=== PATIENT | female | born 1990 | race African-American/Black ===

== ENCOUNTER 2017-09-27 08:28 | Outpatient (CLI) | payer MEDICAID ==
[2017-09-27 09:13] LABS: AMNISURE (ROM) NEGATIVE (NEGATIVE)
[2017-09-27 09:20] LABS: APPEARANCE,URINE CLOUDY; BILIRUBIN,URINE NEGATIVE (NEGATIVE); COLOR,URINE AMBER; GLUCOSE, URINE NEGATIVE (NEGATIVE); KETONES,URINE NEGATIVE (NEGATIVE); LEUKOCYTE ESTERASE,URINE NEGATIVE (NEGATIVE); NITRITE,URINE NEGATIVE (NEGATIVE); PROTEIN,URINE NEGATIVE (NEGATIVE); URINE SPECIFIC GRAVITY 1.016
[2017-09-27 09:38] LABS: URINE AMPHETAMINES SCREEN NEGATIVE; URINE BARBITURATES SCREEN NEGATIVE; URINE BENZODIAZEPINES SCREEN NEGATIVE; URINE COCAINE SCREEN NEGATIVE; URINE MARIJUANA (THC) SCREEN NEGATIVE; URINE METHADONE SCREEN NEGATIVE; URINE PHENCYCLIDINE SCREEN NEGATIVE
== END 2017-09-27 09:51 | disposition home or self-care (01) ==
LOC: LC 08:28
PROVIDERS: ATTEND Student in an Organized Health Care Education/Training Program
PROC: 4A1HXCZ Monitoring of Products of Conception, Cardiac Rate, External Approach (ICD-10-PCS; principal; 2017-09-27)
DX: Z34.93 Encounter for supervision of normal pregnancy, unspecified, third trimester (principal)
CPT/HCPCS: 59025; 80307; 81005; 84112

== ENCOUNTER 2017-09-28 21:17 | Inpatient (IN) | payer MEDICAID ==
[2017-09-28 22:24] LABS: APPEARANCE,URINE CLEAR; BILIRUBIN,URINE NEGATIVE (NEGATIVE); COLOR,URINE YELLOW; GLUCOSE, URINE NEGATIVE (NEGATIVE); KETONES,URINE NEGATIVE (NEGATIVE); LEUKOCYTE ESTERASE,URINE NEGATIVE (NEGATIVE); NITRITE,URINE NEGATIVE (NEGATIVE); PROTEIN,URINE NEGATIVE (NEGATIVE); URINE SPECIFIC GRAVITY 1.014; UROBILINOGEN,URINE NEGATIVE mg/dL (<2.0)
[2017-09-28 22:44] LABS: URINE AMPHETAMINES SCREEN NEGATIVE; URINE BARBITURATES SCREEN NEGATIVE; URINE BENZODIAZEPINES SCREEN NEGATIVE; URINE COCAINE SCREEN NEGATIVE; URINE MARIJUANA (THC) SCREEN NEGATIVE; URINE METHADONE SCREEN NEGATIVE; URINE PHENCYCLIDINE SCREEN NEGATIVE
[2017-09-28] MEDS: RINGERS SOLUTION,LACTATED 1,000 ML IV PRN (23:23)
[2017-09-28 23:25] LABS: ABSOLUTE LYMPHOCYTES (AUTO) 2.9 10^3/uL (0.5-4.7); ABSOLUTE MONOCYTES (AUTO) 1.2 10^3/uL (0.1-1.4); ABSOLUTE NEUT (AUTO) 9.9 10^3/uL (1.7-8.2); BASOPHILS % (AUTO) 0.2 % (0-2); EOSINOPHILS % (AUTO) 0.3 % (0-6); HEMATOCRIT 33.4 % (36.0-47.0); HEMOGLOBIN 11.8 g/dL (12.0-15.5); LYMPHOCYTES % (AUTO) 20.6 % (13-45); MEAN CORPUSCULAR HEMOGLOBIN 31.3 pg (27.0-33.4); MEAN CORPUSCULAR HGB CONC 35.4 g/dL (32.0-36.0); MEAN CORPUSCULAR VOLUME 88 fl (80-97); MONOCYTES % (AUTO) 8.3 % (3-13); PLATELET COUNT 213 10^3/uL (150-450); RED BLOOD COUNT 3.79 10^6/uL (3.72-5.28); RED CELL DISTRIBUTION WIDTH 13.5 % (11.5-14.0); SEGMENTED NEUTROPHILS % (AUTO) 70.6 % (42-78); TOTAL CELLS COUNTED % (AUTO) 100 %
[2017-09-29] MEDS ORDERED: OXYTOCIN/NORMAL SALINE 20 UNIT/1,000 ML RTUINJ IV PRN ×2 (01:56→22:53)
[2017-09-29] MEDS ORDERED: OXYTOCIN/NORMAL SALINE 20 UNIT/1,000 ML RTUINJ ONE (01:59)
--- NOTE | 2017-09-29 04:27 | Admission Physical ---
Datetime Report Generated by CPN: 09/29/2017 04:26 CURRENT ADMISSION Chief Complaint: Suspected Ruptured Membranes Chief Complaint Other: Spoke with pt via tile designer Indication for Induction: Not Applicable Admit Impression : Term, Intrauterine ; No Active Labor; Ruptured Membranes Admit Plan: Admit to Unit; Initiate Labor Protocol ALLERGIES Medication Allergies: No Medication Allergies: No Known Allergies (09/28/2017) Latex: No Latex Allergies Food Allergies: N/A Environmental Allergies: N/A OBSTETRICAL HISTORY EDC: 10/04/2017 00:00 : 2 Para: 0 Term: 0 : 0 SAB: 0 IAB: 0 Ectopic: 0 Livin Cesareans: 0 VBACs: 0 Multiple Births: 0 Gestational Diabetes: No Rh Sensitization: No Incompetent Cervix: No BARTOLOME: No Infertility: No ART Treatment: No Uterine Anomaly: No IUGR: No Hx Previous C/S: No Macrosomia: No Hx Loss/Stillborn: No PIH: No Hx : No Placenta Previa/Abruption: No Depression/PP Depression: No PTL/PROM: No Post Hemorrhage: No Current Procedures: Ultrasound; NST Obstetrical History Comments: G1: G2: current SEE RECORDS Alcohol: No Marijuana : No Cocaine: No Other Illicit Drugs: No Cigarettes: Never Smoker. 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 Patient with complete deafness: dx age 6 months INFECTIOUS HISTORY Gonorrhea: No Genital Herpes: No Chlamydia: No Tuberculosis: No Syphilis: No Hepatitis: No HIV/AIDS Exposure: No Rash or Viral Illness: No HPV: No PHYSICAL EXAM General: Normal HEENT: Normal Neurologic: Normal Heart: Normal Lungs: Normal Abdomen: Normal Genitourinary Exam: Normal Extremities: Normal DTRs: Deferred Pelvic Type: Adequate Vital Signs: Reviewed; Within Normal Limits VAGINAL EXAM Dilatation: 1 Effacement: 0 Station: -3 Contraction Comments: None MEMBRANES Membranes: Ruptured FETUS A EGA: 39.2 Monitoring: External US FHR- Baseline: 135 Variability: Moderate 6-25bpm Accelerations: 15X15 Decelerations: None FHR Category: Category I Presentation: Vertex PLANS FOR LABOR AND DELIVERY Labor and Delivery: None Pain Management: Natural Feeding Preference: Breast Benefit of Breast Feed Discussed: Yes Circumcision: N/A INFORMED CONSENT Signature: with User ID: [email or web address]
[2017-09-29] MEDS ORDERED: GENTAMICIN SULFATE INJ 80 MG/2 ML VIAL IM SCH (06:00)
[2017-09-29] MEDS ORDERED: FENTANYL CITRATE INJ/PF 100 MCG/2 ML AMPUL ONE (08:46)
[2017-09-29] MEDS ORDERED: LIDOCAINE 1.5%/EPINEPHRINE INJ-PF 30 ML SDV ONE (08:47)
[2017-09-29] MEDS ORDERED: PHENYLEPHRINE HCL INJ/PF 10 MG/1 ML SDV ONE (08:47)
[2017-09-29] MEDS ORDERED: EPHEDRINE SULFATE INJ 50 MG/1 ML AMPULE ONE (08:47)
[2017-09-29] MEDS ORDERED: BUPIVACAINE HCL 0.25 % INJ/PF (2.5 MG/1 ML) 30 ML VIAL ONE (08:47)
[2017-09-29] MEDS ORDERED: FENTANYL/BUPIVACAINE/NS/PF 200 MCG/100 ML RTUINJ EPI ONE ×2 (08:51→20:35)
[2017-09-29] MEDS ORDERED: LIDOCAINE 1% INJ-PF (10 MG/ML) 30 ML SDV ONE (09:04)
[2017-09-29] MEDS ORDERED: LIDOCAINE 2% INJ-PF (20 MG/ML) 10 ML AMPUL ONE (09:04)
--- NOTE | 2017-09-29 11:22 | L&D Progress Notes ---
PROGRESS NOTES Datetime Report Generated by CPN: 09/29/2017 11:22 PROGRESS NOTE Impression: Normal Progression of Labor; Reassuring Heart Rate Plan: Continue Present Management; Induction; Cervical Ripening Informed Consent Obtained: Vaginal Delivery; Risks, Benefits and Alternatives Discussed Vital Signs : Reviewed; Within Normal Limits Comment: admitted for PROM and cvx only 2cm now. JANETTE used for interpretation and reviewed intermitted late decels and recommendation for epidural. Reviewed Cooks catheter and patient desires to proceed. Anticiapte . Reviewed C/S for maternal/ distress. VAGINAL EXAM Dilatation: 2 Dilatation: 1 Effacement: 90 Effacement: 0 Station: -1 Station: -3 Contractions: None MEMBRANES Membranes: Ruptured FETUS A FHR - Baseline: 120 Monitoring: External US Variability: Moderate 6-25bpm Accelerations: 15X15 Decelerations: None FHR Category: Category I Presentation: Vertex SIGNATURE SIGNATURE: [id number];[id number] SIGNATURE: [id number] Signature: with User ID: [email or web address]
[2017-09-29] MEDS ORDERED: ONDANSETRON HCL INJ/PF 4 MG/2 ML SDV IV ONE (16:00)
[2017-09-29] MEDS ORDERED: ONDANSETRON HCL INJ/PF 4 MG/2 ML SDV ONE (16:02)
[2017-09-29] MEDS ORDERED: DIPHENHYDRAMINE HCL 50 MG/ML VIAL IV ONE (18:54)
[2017-09-29] MEDS ORDERED: AMPICILLIN SODIUM 2 GM in NORMAL SALINE 100 ML IV ONE ×2 (18:55→20:00)
[2017-09-29] MEDS ORDERED: GENTAMICIN SULFATE INJ 80 MG/2 ML VIAL IV ONE (18:56)
[2017-09-29] MEDS ORDERED: GENTAMICIN SULFATE INJ 80 MG/2 ML VIAL INJ PRN (19:10)
[2017-09-29] MEDS ORDERED: AMPICILLIN SOD INJ 1 GM VIAL IV PRN (19:11)
[2017-09-29] MEDS ORDERED: AMPICILLIN SOD INJ 2 GM VIAL IV ONE (19:12)
[2017-09-29] MEDS ORDERED: AMPICILLIN SOD INJ 2 GM VIAL IV PRN (19:12)
[2017-09-29] MEDS ORDERED: GENTAMICIN SULFATE 170 MG in DEXTROSE 5%-WATER 100 ML IV ONE ×3 (19:15→20:06)
[2017-09-29] MEDS ORDERED: GENTAMICIN SULFATE INJ 80 MG/2 ML VIAL ONE (20:18)
[2017-09-29] MEDS ORDERED: AMPICILLIN SOD INJ 2 GM VIAL ONE (20:19)
[2017-09-29] MEDS ORDERED: DIPHENHYDRAMINE HCL 50 MG/ML VIAL ONE (20:52)
[2017-09-29] MEDS: RINGERS SOLUTION,LACTATED 1,000 ML IV PRN (21:00)
[2017-09-29] MEDS ORDERED: MISOPROSTOL 0.2 MG TABLET ONE (22:39)
[2017-09-29] MEDS ORDERED: DIBUCAINE 1% OINTMENT 28 GM TP PRN (22:53)
[2017-09-29] MEDS ORDERED: MISOPROSTOL 0.2 MG TABLET PR PRN (22:53)
[2017-09-29] MEDS ORDERED: PSEUDOEPHEDRINE HCL 30 MG TABLET PO PRN (22:53)
[2017-09-29] MEDS ORDERED: ACETAMINOPHEN 325 MG TABLET PO PRN (22:53)
[2017-09-29] MEDS ORDERED: GLYCERIN/WITCH HAZEL LEAF 1 EACH MED..PAD TP PRN (22:53)
[2017-09-29] MEDS ORDERED: DIPHENHYDRAMINE HCL 25 MG CAPSULE PO PRN (22:53)
[2017-09-29] MEDS ORDERED: MAGNESIUM HYDROXIDE SUSP 30 ML UDCUP PO PRN (22:53)
[2017-09-29] MEDS ORDERED: MEASLES,MUMPS&RUBELLA VACC/PF 0.5 ML VIAL SUBCUT PRN (22:53)
[2017-09-29] MEDS ORDERED: ZOLPIDEM TARTRATE 5 MG TABLET PO PRN (22:53)
[2017-09-29] MEDS ORDERED: BENZOCAINE/MENTHOL AEROSOL SPRAY 56 ML TOP PRN (22:53)
[2017-09-29] MEDS ORDERED: ACETAMINOPHEN WITH CODEINE #3 TABLET PO PRN ×2 (22:53)
[2017-09-29] MEDS ORDERED: NA PHOS,M-B/NA PHOS,DI-BA (ADULT) 133 ML ENEMA PR PRN (22:53)
[2017-09-29] MEDS ORDERED: DIPH/PERTUSS(ACELL)/TETANUS VAC/PF 0.5 ML SYR (>=10YO) IM PRN (22:53)
[2017-09-29] MEDS ORDERED: PROMETHAZINE HCL INJ 25 MG/1 ML VIAL IV PRN (22:53)
[2017-09-29] MEDS ORDERED: PROMETHAZINE HCL 25 MG TABLET PO PRN (22:53)
[2017-09-29] MEDS ORDERED: PROMETHAZINE HCL 25 MG SUPP.RECT PR PRN (22:53)
--- NOTE | 2017-09-29 23:15 | Warning Signs in Babies ---
VOD Warning Signs Datetime Report Generated by [facility]: 09/29/2017 23:15 VOD#608 -Warning Signs in Babies: Needs to be viewed. (09/27/2017 08:30:Jerrica Lott RN)
[2017-09-29] MEDS ORDERED: IBUPROFEN 800 MG TABLET ONE (23:44)
--- NOTE | 2017-09-29 23:54 | Delivery Summary ---
Del Sum A-C Datetime Report Generated by CPN: 09/29/2017 23:54 DELIVERY PERSONNEL DELIVERY PERSONNEL: [id number] Delivery Doctor:: Jocelyn Crsepo MD Anesthesiologist:: Rhonda Blackmon MD Labor and Delivery Nurse:: Jerrica Lott RNmasseur/masseuse Nurse:: Soraida Ya RN Nursery Nurse:: Karina Licona RN Nursery Nurse:: Xuan Maldonado RN Patient Attendant/RESIDENTIAL PROGRAM MANAGER: Adriana Quinten, ST MATERNAL INFORMATION Delivery Anesthesia: Local; Epidural Medications After Delivery: Pitocin Bolus-Please Comment; Pitocin Drip 20 Units/1000ml NSS; Other-Please Comment Meds After Delivery Comment: Cytotec 1000mcg per Dr Crespo Maternal Complications: Other Other Maternal Complications: Prolonged rupture of membranes Provider Comments: VFI delivered in SAE presentation with compound right arm. No nuchal cord. Shoulders and body delivered without difficulty. Cord doubly clamped and cut and infant to maternal abdomen for NRP. Placenta delivered intact spontaneously. FF at U. 1st degree perineal laceration repaired in usual fashion with good hemostasis. Cytotec 1000mcg NE placed for uterine atony with good response. Mother and baby stable upon provider leaving the room. LABOR SUMMARY EDC: 10/04/2017 00:00 No. Babies in Womb: 1 Attempted: No Labor Anesthesia: Epidural LABOR INFORMATION Reason for Induction: Premature Rupture of Membranes Onset of Labor: 09/29/2017 18:46 Complete Dilatation: 09/29/2017 22:22 Cervical Ripening Agents: Bonds Balloon Oxytocin: Induction Group B Beta Strep: negative Steroids Given: None Reason Steroids Not Administered: Not Applicable MEMBRANES Membranes Rupture Method: Spontaneous Amniotic Fluid Color: Clear Amniotic Fluid Amount: None STAGES OF LABOR Stage 1 hr: 3 Stage 1 min: 36 Stage 2 hr: 0 Stage 2 min: 9 Stage 3 hr: 0 Stage 3 min: 3 Total Time in Labor hr: 3 Total Time in Labor min: 48 VAGINAL DELIVERY Episiotomy: None Laceration #1: Vaginal Laceration Extension #1: First Degree Laceration Repair: Yes Laceration Repair Note: 1st degree perineal laceration repaired in usual fashion Sponge Count Correct: Yes Sharps Count Correct: Yes BABY A INFORMATION Infant Delivery Date/Time: 09/29/2017 22:31 Method of Delivery: Vaginal Born in Route : No : N/A Forceps: N/A Vacuum Extraction: N/A Shoulder Dystocia : No PRESENTATION/POSITION BABY A Presentation: Cephalic Cephalic Presentation: Vertex Vertex Position: Left Occipital Anterior Breech Presentation: N/A PLACENTA INFORMATION BABY A Placenta Delivery Time : 09/29/2017 22:34 Placenta Method of Delivery: Spontaneous Placenta Status: Delivered SCORES BABY A Heart Rate 1 min: >100 bpm Resp Effort 1 min: Good Cry Reflex Irritability 1 min: Cough or Sneeze or Pulls Away Muscle Tone 1 min: Active Motion Color 1 min: Blue/Pale Resuscitation Effort 1 min: Tactile Stimulation SCORE 1 MIN: 8 Heart Rate 5 min: >100 bpm Resp Effort 5 min: Good Cry Reflex Irritability 5 min: Cough or Sneeze or Pulls Away Muscle Tone 5 min: Active Motion Color 5 min: Body [place], Extremities Blue Resuscitation Effort 5 min: Tactile Stimulation SCORE 5 MIN: 9 INFANT INFORMATION BABY A Gestational Age at Delivery: 39.2 Gestational Status: Full Term- 39- 40.6 Weeks Infant Outcome : Liveborn Infant Condition : Stable Infant Sex: Female IDENTIFICATION BABY A Verification Date/Time: 09/29/2017 23:03 ID Band Number: [id number] Mother's Name Verified: Yes RN Verifying : Trever Villagomezco, RN Additional Verifying Personnel: Ananya Osorio, RN WEIGHT/LENGTH BABY A Infant Birthweight (gm): 3160 Infant Weight (lb): 6 Infant Weight (oz): 15 CORD INFORMATION BABY A No. Cord Vessels: 3 Nuchal Cord : N/A Cord Blood Taken: Yes-For Storage (Mom's Blood type +) Suction: Mouth; Nose ASSESSMENT BABY A Infant Complications: Multiple Late Decels Complications- Other: right compound hand Physical Findings at Delivery: Within Normal Limits Physical Findings- Other: initial assessment to be performed by nursery nurse who is at bedside Infant Respirations: Appears Normal Skin to Skin: Yes Skin to Skin Time (min): 50 Sausage Cooker/ALS Called : No Infant Care By: Jennifer maldonado RN Transferred To: Remains with Mother SIGNATURES Signature: with User ID: [email or web address]
[2017-09-30] MEDS ORDERED: AMPICILLIN SODIUM 1 GM in NORMAL SALINE 50 ML IV SCH ×2
[2017-09-30] MEDS ORDERED: AMPICILLIN SOD INJ 1 GM VIAL IV SCH
[2017-09-30] MEDS ORDERED: GENTAMICIN SULFATE INJ 80 MG/2 ML VIAL ONE (03:51)
[2017-09-30] MEDS ORDERED: AMPICILLIN SOD INJ 1 GM VIAL ONE (03:51)
[2017-09-30] MEDS ORDERED: GENTAMICIN SULFATE INJ 80 MG/2 ML VIAL IV SCH (04:00)
[2017-09-30] MEDS ORDERED: GENTAMICIN SULFATE 130 MG in DEXTROSE 5%-WATER 100 ML IV SCH (04:00)
[2017-09-30] MEDS ORDERED: GENTAMICIN SULFATE INJ 80 MG/2 ML VIAL IM SCH (04:00)
[2017-09-30] MEDS: AMPICILLIN SODIUM 1 GM in NORMAL SALINE 50 ML IV SCH ×3 (05:45→18:14)
[2017-09-30] MEDS: IBUPROFEN 800 MG TABLET PO SCH ×3 (06:38→22:00)
[2017-09-30] MEDS ORDERED: PROMETHAZINE HCL INJ 25 MG/1 ML VIAL IV PRN (07:30)
[2017-09-30] MEDS ORDERED: MEASLES,MUMPS&RUBELLA VACC/PF 0.5 ML VIAL SUBCUT PRN (07:30)
[2017-09-30] MEDS ORDERED: DIPH/PERTUSS(ACELL)/TETANUS VAC/PF 0.5 ML SYR (>=10YO) IM PRN (07:30)
[2017-09-30 07:52] LABS: HEMATOCRIT 34.7 % (36.0-47.0); HEMOGLOBIN 11.8 g/dL (12.0-15.5); MEAN CORPUSCULAR HEMOGLOBIN 30.6 pg (27.0-33.4); MEAN CORPUSCULAR VOLUME 90 fl (80-97); PLATELET COUNT 217 10^3/uL (150-450); RED BLOOD COUNT 3.85 10^6/uL (3.72-5.28); RED CELL DISTRIBUTION WIDTH 13.5 % (11.5-14.0)
[2017-09-30 08:22] LABS: WHITE BLOOD COUNT 32.1 10^3/uL (4.0-10.5)
[2017-09-30] MEDS: FAMOTIDINE 20 MG TABLET PO SCH ×2 (10:03→22:35)
[2017-09-30] MEDS: DOCUSATE SODIUM 100 MG CAPSULE PO SCH ×2 (10:04→18:13)
[2017-09-30] MEDS: FERROUS SULFATE 325 MG TABLET PO SCH ×2 (10:04→18:13)
[2017-09-30] MEDS: SENNOSIDES/DOCUSATE 8.6-50 MG 1 EACH TABLET PO SCH (10:04)
[2017-09-30] MEDS: GENTAMICIN SULFATE 130 MG in DEXTROSE 5%-WATER 100 ML IV SCH ×2 (10:04→19:19)
[2017-09-30] MEDS: PRENATAL VITAMIN W DHA CAPSULE PO SCH (10:04)
--- NOTE | 2017-09-30 15:39 | PDOC PROGRESS REPORT ---
Subjective-OB Progress Note for:: 09/30/17 Subjective: communicated with pt by writing. pt reports bleeding slowing, pain controlled, tolerating diet. denies needs. Physical Exam (OB) Vital Signs: Temp Pulse Resp BP Pulse Ox 98.3 F 88 16 107/77 98 09/30/17 07:44 09/30/17 07:44 09/30/17 07:44 09/30/17 07:44 09/30/17 07:44 Intake & Output 09/29/17 09/30/17 10/01/17 06:59 06:59 06:59 Weight 85.1 kg - Abdomen Description: Soft, Flat Hernia Present: No Fundal Description: Firm, Midline Fundal Height: u/u - u/2 - Abdominal Tenderness: Nontender - Extremities Lower extremities: Sheridan's sign - neg Calf: Normal, Nontender Objective-Diagnostic Laboratory: 09/30/17 07:27 09/30/17 07:27 WBC 32.1 H* D RBC 3.85 Hgb 11.8 L Hct 34.7 L MCV 90 MCH 30.6 MCHC 34.0 RDW 13.5 Plt Count 217 Assessment and Plan(PN) Plan:: discharge tomorrow - Time Spent with Patient Time with patient: Less than 15 minutes - Disposition Anticipated Discharge: Home Within: within 24 hours
[2017-10-01] MEDS: AMPICILLIN SODIUM 1 GM in NORMAL SALINE 50 ML IV SCH ×3 (01:24→12:26)
[2017-10-01] MEDS: GENTAMICIN SULFATE 130 MG in DEXTROSE 5%-WATER 100 ML IV SCH ×3 (03:09→18:28)
[2017-10-01] MEDS: IBUPROFEN 800 MG TABLET PO SCH ×3 (05:49→22:46)
[2017-10-01 06:46] LABS: ABSOLUTE BASOPHILS # (AUTO) 0.1 10^3/uL (0.0-0.2); ABSOLUTE EOSINOPHILS # (AUTO) 0.1 10^3/uL (0.0-0.6); ABSOLUTE LYMPHOCYTES (AUTO) 3.4 10^3/uL (0.5-4.7); ABSOLUTE MONOCYTES (AUTO) 1.3 10^3/uL (0.1-1.4); ABSOLUTE NEUT (AUTO) 14.1 10^3/uL (1.7-8.2); BASOPHILS % (AUTO) 0.3 % (0-2); EOSINOPHILS % (AUTO) 0.6 % (0-6); HEMATOCRIT 33.7 % (36.0-47.0); HEMOGLOBIN 11.5 g/dL (12.0-15.5); LYMPHOCYTES % (AUTO) 17.9 % (13-45); MEAN CORPUSCULAR HEMOGLOBIN 30.9 pg (27.0-33.4); MEAN CORPUSCULAR HGB CONC 34.3 g/dL (32.0-36.0); MEAN CORPUSCULAR VOLUME 90 fl (80-97); MONOCYTES % (AUTO) 6.7 % (3-13); PLATELET COUNT 192 10^3/uL (150-450); RED BLOOD COUNT 3.73 10^6/uL (3.72-5.28); RED CELL DISTRIBUTION WIDTH 13.8 % (11.5-14.0); SEGMENTED NEUTROPHILS % (AUTO) 74.5 % (42-78); TOTAL CELLS COUNTED % (AUTO) 100 %
--- NOTE | 2017-10-01 09:05 | PDOC PROGRESS REPORT ---
Subjective-OB Progress Note for:: 10/01/17 Subjective: Sitting up in bed, no c/o, feeling good, scant bleeding, friend at BS, used paper and pen to communicate Physical Exam (OB) Vital Signs: Temp Pulse Resp BP Pulse Ox 97.9 F 70 16 105/73 98 09/30/17 19:50 09/30/17 19:50 09/30/17 19:50 09/30/17 19:50 09/30/17 19:50 Intake & Output 09/30/17 10/01/17 10/02/17 06:59 06:59 06:59 Intake Total 150 Balance 150 - Lochia Lochia Amount: Scant < 10 ml Lochia Color: Rubra/Red - Abdomen Description: Soft, Flat Hernia Present: No Fundal Description: Firm, Midline Fundal Height: u/u - u/2 Objective-Diagnostic Laboratory: 10/01/17 06:34 10/01/17 06:34 WBC 19.0 H RBC 3.73 Hgb 11.5 L Hct 33.7 L MCV 90 MCH 30.9 MCHC 34.3 RDW 13.8 Plt Count 192 Seg Neutrophils % 74.5 Lymphocytes % 17.9 Monocytes % 6.7 Eosinophils % 0.6 Basophils % 0.3 Absolute Neutrophils 14.1 H Absolute Lymphocytes 3.4 Absolute Monocytes 1.3 Absolute Eosinophils 0.1 Absolute Basophils 0.1 Assessment and Plan(PN) - Assessment and Plan (1) Obstetrical laceration, first degree Is this a current diagnosis for this admission?: Yes (2) Vaginal delivery Is this a current diagnosis for this admission?: Yes (3) Prolonged antepartum rupture of membranes Is this a current diagnosis for this admission?: Yes (4) Premature rupture of membranes Qualifiers: PROM onset of labor timing: onset of labor within 24 hours of rupture Is this a current diagnosis for this admission?: Yes (5) Hearing impaired person Qualifiers: Laterality: unspecified laterality Qualified Code(s): H91.90 - Unspecified hearing loss, unspecified ear Is this a current diagnosis for this admission?: Yes - Time Spent with Patient Time with patient: Less than 15 minutes - Disposition Anticipated Discharge: Home Within: Other - home today
--- NOTE | 2017-10-01 09:12 | PDOC DISCHARGE SUMMARY ---
Final Diagnosis Discharge Date: 10/01/17 - Final Diagnosis (1) Obstetrical laceration, first degree Is this a current diagnosis for this admission?: Yes (2) Vaginal delivery Is this a current diagnosis for this admission?: Yes (3) Prolonged antepartum rupture of membranes Is this a current diagnosis for this admission?: Yes (5) Hearing impaired person Is this a current diagnosis for this admission?: Yes Discharge Data - Discharge Medication Home Medications: No122/Iron/Folic Acid [ Multi Tablet] 1 tab PO DAILY 09/27/17 Gestational Age: 39.2 Reason(s) for Admission: PROM Procedures: NST, Ultrasound Intrapartum Procedure(s): Spontaneous Vaginal Delivery Complication(s): Laceration-Vaginal Laceration-Degree: 1st - Data Baby 1 Female at 1 minute: 8 at 5 minutes: 9 Weight: 3.147 kg Home with Mother: Yes Complications: No - Diagnosis Test Laboratory: Temp Pulse Resp BP Pulse Ox 97.9 F 58 L 18 100/67 100 10/01/17 08:09 10/01/17 08:09 10/01/17 08:09 10/01/17 08:09 10/01/17 08:09 09/28/17 09/28/17 09/30/17 21:22 23:09 07:27 RBC 3.79 3.85 Hgb 11.8 L 11.8 L Hct 33.4 L 34.7 L Urine Opiates Screen NEGATIVE 10/01/17 06:34 RBC 3.73 Hgb 11.5 L Hct 33.7 L Urine Opiates Screen - Discharge information/Instructions Discharge Activity: Activity As Tolerated, No Lifting Over 10 Pounds, No Lifting /Push/Pulling, Pelvic Rest Discharge Diet: As Tolerated, Regular Disposition: HOME, SELF-CARE Follow up with: [facility] in: 1, Weeks - home with po antibiotics, repeat CBC this AM
[2017-10-01] MEDS: PRENATAL VITAMIN W DHA CAPSULE PO SCH (11:03)
[2017-10-01] MEDS: FERROUS SULFATE 325 MG TABLET PO SCH ×2 (11:04→18:27)
[2017-10-01] MEDS: DOCUSATE SODIUM 100 MG CAPSULE PO SCH ×2 (11:04→18:28)
[2017-10-01] MEDS: SENNOSIDES/DOCUSATE 8.6-50 MG 1 EACH TABLET PO SCH (11:56)
[2017-10-01] MEDS: FAMOTIDINE 20 MG TABLET PO SCH ×2 (11:56→22:46)
[2017-10-02] MEDS: GENTAMICIN SULFATE 130 MG in DEXTROSE 5%-WATER 100 ML IV SCH ×2 (03:26→10:11)
[2017-10-02] MEDS: IBUPROFEN 800 MG TABLET PO SCH (05:49)
[2017-10-02 08:44] VITALS: BP 116/69
[2017-10-02] MEDS: FAMOTIDINE 20 MG TABLET PO SCH (10:08)
[2017-10-02] MEDS: DOCUSATE SODIUM 100 MG CAPSULE PO SCH (10:08)
[2017-10-02] MEDS: SENNOSIDES/DOCUSATE 8.6-50 MG 1 EACH TABLET PO SCH (10:08)
[2017-10-02] MEDS: PRENATAL VITAMIN W DHA CAPSULE PO SCH (10:09)
[2017-10-02] MEDS: FERROUS SULFATE 325 MG TABLET PO SCH (10:09)
--- NOTE | 2017-10-02 10:26 | PDOC DISCHARGE SUMMARY ---
Final Diagnosis Discharge Date: 10/02/17 - Final Diagnosis (1) Hearing impaired person Is this a current diagnosis for this admission?: Yes (2) Obstetrical laceration, first degree Is this a current diagnosis for this admission?: Yes (3) Vaginal delivery Is this a current diagnosis for this admission?: Yes Discharge Data - Discharge Medication Home Medications: No122/Iron/Folic Acid [ Multi Tablet] 1 tab PO DAILY 09/27/17 Intrapartum Procedure(s): Spontaneous Vaginal Delivery - Diagnosis Test Laboratory: Temp Pulse Resp BP Pulse Ox 98.1 F 63 16 116/69 99 10/02/17 08:29 10/02/17 08:29 10/01/17 19:22 10/02/17 08:29 10/02/17 08:29 09/28/17 09/28/17 09/30/17 21:22 23:09 07:27 RBC 3.79 3.85 Hgb 11.8 L 11.8 L Hct 33.4 L 34.7 L Urine Opiates Screen NEGATIVE 10/01/17 06:34 RBC 3.73 Hgb 11.5 L Hct 33.7 L Urine Opiates Screen - Discharge information/Instructions Discharge Activity: Activity As Tolerated, No Lifting Over 10 Pounds, No Lifting /Push/Pulling, Pelvic Rest Discharge Diet: Regular Disposition: HOME, SELF-CARE Follow up with: [facility] in: 1, Weeks - home with po antibiotics, repeat CBC this AM
== END 2017-10-02 13:18 | disposition home or self-care (01) | DRG 775 ==
LOC: LC 21:17 → LR 22:59 → 2S 09-30 00:46
PROVIDERS: ADMIT Obstetrics & Gynecology; ATTEND Obstetrics & Gynecology
PROC: 10E0XZZ Delivery of Products of Conception, External Approach (ICD-10-PCS; principal; 2017-09-29)
PROC: 0HQ9XZZ Repair Perineum Skin, External Approach (ICD-10-PCS; 2017-09-29)
PROC: 4A1HXCZ Monitoring of Products of Conception, Cardiac Rate, External Approach (ICD-10-PCS; 2017-09-29)
PROC: 0U7C7ZZ Dilation of Cervix, Via Natural or Artificial Opening (ICD-10-PCS; 2017-09-29)
DX: O42.92 Full-term premature rupture of membranes, unspecified as to length of time between rupture and onset of labor (principal); O70.0 First degree perineal laceration during delivery; O76 Abnormality in fetal heart rate and rhythm complicating labor and delivery; O99.89 Other specified diseases and conditions complicating pregnancy, childbirth and the puerperium; H90.3 Sensorineural hearing loss, bilateral; O32.6XX0 Maternal care for compound presentation, not applicable or unspecified; O62.2 Other uterine inertia; Z37.0 Single live birth; Z3A.39 39 weeks gestation of pregnancy
CPT/HCPCS: 36415; 80307; 81005; 85025; 85027; 86592; 86850; 86900; 86901; 94760; C1726; J0290; J1200; J1580; J2370; J2405; J2590; J3010; J3490; Q0114